=== PATIENT | male | born 1995 | race African-American/Black ===

== ENCOUNTER 2023-06-21 16:07 | Outpatient (REF) | payer OTHER, SELFPAY ==
--- NOTE | ~2023-06-21 | MR_ITS ---
EXAMINATION: MR KNEE WITHOUT CONTRAST, LEFT CLINICAL INFORMATION: Instability of the left knee. Left knee instability. COMPARISON: None available. TECHNIQUE: MRI of the knee without contrast was performed using routine sequences on a high-field scanner. FINDINGS: MENISCI: Medial Meniscus: Intact. Lateral Meniscus: Intact. LIGAMENTS: Cruciate: Intact. Collateral: Intact. EXTENSOR MECHANISM: Insall-Salvati ratio is 0.75, indicating patella baja. Mild patellar and quadriceps tendinosis. No tears. ARTICULAR CARTILAGE/BONE: Patellofemoral Compartment: A small transverse chondral fissure is suspected at the lateral patellar facet, low in signal intensity on sagittal images. A similar low signal intensity chondral fissure is suspected at the proximal margin of the central trochlear groove. The articular cartilage is otherwise normal. The elongated distal pole of the patella may be the result of a remote injury or jumper's knee. No acute abnormalities in this region. Normal trochlear morphology. Medial Compartment: Normal. Lateral Compartment: Normal. JOINT FLUID AND BURSAE: Trace joint fluid is within normal limits. No significant Robertson's cyst. MR/MR knee LT wo con IMPRESSION: 1. Patella baja. Mild patellar and quadriceps tendinosis. 2. Small chondral fissures at the patellofemoral compartment. No acute osteochondral abnormalities. 3. Intact ligaments and menisci.
== END 2023-06-21 16:08 | disposition home or self-care (01) ==
LOC: HO.MRI 16:07
PROVIDERS: Visit Provider Family Medicine
DX: M25.562 Pain in left knee (principal)
CPT/HCPCS: 73721